=== PATIENT | female | born 1990 | race Two or more races ===

== ENCOUNTER 2016-09-25 17:17 | Inpatient (IN) | payer OTHER ==
[~2016-09-25] VITALS: Ht 175.3 cm; Wt 72.1 kg
[2016-09-25] MEDS ORDERED: Lactated Ringer's 500 ML IV ONE (17:28)
[2016-09-25] MEDS ORDERED: Lactated Ringer's 1,000 ML IV SCH ×2 (17:28→18:42)
[2016-09-25] MEDS ORDERED: Atropine 1 mg/10 mL (Code) Syringe IVPUSH PRN (17:30)
[2016-09-25] MEDS ORDERED: fentaNYL 2 mCg/mL-Bupiv 0.125% 100 ML EPIDURAL SCH (17:30)
[2016-09-25] MEDS ORDERED: Ondansetron 2 mg/mL 2 mL Inj IVPUSH PRN (17:30)
[2016-09-25] MEDS ORDERED: EPHEDrine Sulfate 50 mg/mL Inj IVPUSH PRN (17:30)
[2016-09-25] MEDS ORDERED: Lactated Ringer's 1,000 ML IV PRN (17:38)
[2016-09-25] MEDS ORDERED: Hemorrhage Kit, Post Partum XX ONE ×2 (17:40→18:45)
[2016-09-25] MEDS ORDERED: Sodium Chloride LOK Flush 10 mL Syringe IVFLUSH PRN (17:40)
[2016-09-25] MEDS ORDERED: Carboprost 250 mCg/mL Inj IM PRN ×2 (17:40→18:45)
[2016-09-25] MEDS ORDERED: Oxytocin 30 Units/500 mL LR 30 UNITS in IV Premix 1 EACH IV PRN (17:40)
[2016-09-25] MEDS ORDERED: Oxytocin 10 Unit/mL Inj IM PRN ×2 (17:40→18:45)
[2016-09-25] MEDS ORDERED: Methylergonovine 0.2 mg/mL Inj IM PRN ×2 (17:40→18:45)
[2016-09-25 17:56] LABS: Mean Corpuscular Hemoglobin 31.5 pg (27.0-35.0); Mean Corpuscular Volume 86.6 fL (81-100)
[2016-09-25] MEDS ORDERED: oxyCODONE-Acetamin 5-325 mg Tablet PO PRN (18:45)
[2016-09-25] MEDS ORDERED: Benzocaine (Dermoplast) 20% 60 Gm Spray TOPICAL PRN (18:45)
[2016-09-25] MEDS ORDERED: HYDROcodone-APAP 5-325 mg Tablet PO PRN (18:45)
[2016-09-25] MEDS ORDERED: Witch Hazel-Glycerin Pads TOPICAL PRN (18:45)
--- NOTE | 2016-09-25 19:36 | OP ---
[address] [address] OPERATIVE REPORT PATIENT: EDGAR FLOWERS : 1990 MR#: [id number] ADMIT: 09/25/2016 JOB ID: [id number] DATE OF SURGERY: 09/25/2016 at 6:17 p.m. POSTOPERATIVE DIAGNOSIS(ES): PREOPERATIVE DIAGNOSIS(ES): SURGEON: Rio Nunez MD DELIVERY SUMMARY: This 26-year-old female at 38 weeks and 5 days estimated gestational age delivered a 7 pound 1 ounce male with Apgars of 8 and 9 by normal vaginal delivery. The patient arrived at 5 cm dilation with 100% effacement with contractions every 3-4 minutes. She progressed very quickly from that point to complete, in active labor. This timeframe was all within an hour's time. She wanted an epidural but she went so quickly that we were unable to provide this. She had to hold off pushing until I could arrive, but once I did arrive she pushed over approximately three contractions and delivered across a second degree midline perineal episiotomy. I had to cut the episiotomy due to the fact that there was a low heart rate in the 50s to 60s. This episiotomy did not extend significantly. The baby instantly delivered after the episiotomy, but the cord was wrapped around his legs twice relatively tightly. The was delivered up and onto his mom and instantly was crying and vigorous. Delayed cord clamping was observed for about a minute. The cord stopped pulsing and so I went ahead and clamped and cut it. Cord blood was sent for analysis. The placenta delivered approximately 5 minutes later, spontaneously and intact, with a three-vessel cord. I did numb her perineum locally with 1% lidocaine without epi; a total of 10 cc was used. 3-0 Vicryl was used in the usual fashion to repair the second-degree tear. She tolerated this quite well. The patient's uterus was found to be firm, her cervix intact, and her rectum intact. Counts were correct x2. There were no other complications of this delivery.
[2016-09-26] MEDS ORDERED: Sodium Chloride LOK Flush 10 mL Syringe IVFLUSH SCH (00:30)
[2016-09-26 06:34] LABS: Mean Corpuscular Hemoglobin 30.8 pg (27.0-35.0); Mean Corpuscular Volume 88.3 fL (81-100)
--- NOTE | 2016-09-26 17:43 | PCM.DC.OB ---
Obstetrical Discharge Summary Date of Service Sep 26, 2016 Date of hospital admission Sep 25, 2016 at 17:21 Date of Discharge: Sep 26, 2016 Providers Admitting Physician: Rio Nunez MD Primary Care Physician: Rosa Nguyen DO Attending Physician: Rio Nunez MD Problems: (1) Status post normal vaginal delivery Status: Acute ICD Code: [id number] Consultations None Invasive procedures NVD Date of Procedure: Sep 25, 2016 Hospital Course: Patient presented in labor and delivered and recovered without complication. Discharge Activity-General: Pelvic Rest for 6 weeks, Balance rest and activity , Activity as energy allows, No lifting >15 pounds for 2 weeks Rio Nunez MD Sep 26, 2016 17:43
--- NOTE | 2016-09-26 17:45 | PCM.DIOB ---
Obstetrical Disch Instruction Date of Service: Sep 26, 2016 Dates of Hospitalization Date of Hospital Admission Sep 25, 2016 at 17:21 Providers Admitting Physician: Rio Nunez MD Primary Care Physician: Rosa Nguyen DO Attending Physician: Rio Nunez MD Discharge Diagnosis Problems: (1) Status post normal vaginal delivery Status: Acute ICD Code: [id number] Diet Discharge Diet: No restrictions Activity Discharge Activity-General: Pelvic Rest for 6 weeks, Activity as pain allows, Activity as energy allows, No lifting >15 pounds for 2 weeks Dressing and Incisional Care Hygiene: May shower, Perineal care, Sitz bath, Dermoplast spray, Witch Edie pads Follow Up Plan Follow-up Provider (F9): Carolee Saba ARNP Follow-up appointment: Weeks (8) Call your provider for: Fever or Chills, Shortness of breath, Heavy vaginal bleeding, Excessive constipation, Vaginal discomfort, Red painful breasts Rio Nunez MD Sep 26, 2016 17:45
[2016-09-26 20:07] VITALS: BP 111/70; PULSE 89; RESP 19
== END 2016-09-26 21:05 | disposition home or self-care (01) | DRG 775 ==
LOC: FBCO 17:17 → FBC 17:21
PROVIDERS: ADMIT Family Medicine; ATTEND Family Medicine
PROC: 10E0XZZ Delivery of Products of Conception, External Approach (ICD-10-PCS; principal; 2016-09-25)
PROC: 0W8NXZZ Division of Female Perineum, External Approach (ICD-10-PCS; 2016-09-25)
DX: O62.3 Precipitate labor (principal); O69.82X0 Labor and delivery complicated by other cord entanglement, without compression, not applicable or unspecified; Z37.0 Single live birth; O76 Abnormality in fetal heart rate and rhythm complicating labor and delivery; Z3A.38 38 weeks gestation of pregnancy